=== PATIENT | male | born 1945 | race African-American/Black ===

== ENCOUNTER 2025-08-15 13:06 | Inpatient (IN) | payer MEDICARE, OTHER ==
[2025-08-15] VITALS (8 sets, daily range): BP systolic 142–151; BP diastolic 80–88; PULSE 79–97; RESP 18–22; TEMP 36.8–36.974; O2SAT 92–98
[~2025-08-15] VITALS: Ht 177.8 cm; Wt 65.3 kg
[2025-08-15] MEDS: METHYLPREDNISOLONE SOD SUCC 125MG/2ML (ACT-O-VIAL) IV ONE (13:53)
[2025-08-15] MEDS: AZITHROMYCIN 500MG/250ML 250 ML IV ONE (13:54)
[2025-08-15 13:58] LABS: HEMATOCRIT. 32.4 % (42.0-52.0); HEMOGLOBIN. 10.8 g/dL (14.0-18.0); MEAN PLATELET VOLUME 9.5 fl (7.4-10.4); PLATELET 353 x1000/uL (130-400); RED BLOOD CELL COUNT 3.31 mill/uL (4.7-6.1); RED CELL DISTRIBUTION WIDTH 16.5 % (11.6-14.6)
[2025-08-15] MEDS: ALBUTEROL (0.083%) 2.5MG/3ML NEB HHN SCH (14:00)
[2025-08-15 14:18] LABS: CREATININE 1.0 mg/dL (0.6-1.3)
[2025-08-15 14:19] LABS: PROTEIN TOTAL 7.1 g/dL (6.0-8.3); UREA NITROGEN BLOOD 14 mg/dL (9-23)
[2025-08-15 14:20] LABS: ASPARTATE AMINOTRANSFERASE 43 IU/L (<34); BILIRUBIN DIRECT 0.3 mg/dL (<=3.0)
[2025-08-15 14:21] LABS: BILIRUBIN TOTAL 0.8 mg/dL (0.1-1.0)
[2025-08-15 14:21] LABS: BG BASE EXCESS -0.1 mmol/L (-2.0-3.0); BG CARBOXYHEMOGLOBIN 1.2 % (0.5-1.5); BG DEOXYHEMOGLOBIN 7.8 % (0.0-5.0); BG FLOW(L/min) 8.00 L/min; BG FRACTION INSPIRED OXYGEN 60; BG HCO3 ACT 22.8 mmol/L (21.0-28.0); BG METHEMOGLOBIN 0.3 % (0.5-1.5); BG OXYGEN SATURATION 92.1 % (94.0-98.0); BG OXYHEMOGLOBIN 90.7 % (94.0-98.0); BG PCO2 31.4 mmHg (35.0-48.0); BG PH 7.478 (7.350-7.450); BG PO2 62.6 mmHg (83.0-108.0); BG SAMPLE SITE RIGHT RADIAL; BG TOTAL HEMOGLOBIN 12.2 g/dL (13.5-17.5); BG VENT MODE MASK - HHN
[2025-08-15 14:25] LABS: TROPONIN I HIGH SENSITIVITY 123 ng/L (3.0-53)
[2025-08-15 14:31] LABS: BAND% 9.0 % (1.0-6.0); LYMPHOCYTES % MANUAL 8.0 % (20.0-50.0); MONOCYTES % MANUAL 4.0 % (2.0-8.0); NEUTROPHILS % MANUAL 79.0 % (45.0-75.0); PLATELET ESTIMATE NORMAL
[2025-08-15] MEDS ORDERED: CEFTRIAXONE 2,000 MG in DEXT 5% WATER 100 ML IV SCH (15:00)
[2025-08-15] MEDS: FUROSEMIDE 40MG/4ML VIAL IVP ONE (15:05)
[2025-08-15] MEDS ORDERED: CLONIDINE 0.1MG TABLET PO PRN (15:15)
[2025-08-15] MEDS ORDERED: ONDANSETRON HCL 4MG/2ML INJ IV PRN (15:15)
[2025-08-15] MEDS ORDERED: ACETAMINOPHEN 325MG TABLET PO PRN ×2 (15:15)
[2025-08-15] MEDS ORDERED: IPRATROPIUM/ALBUTEROL 0.5-3(2.5)MG/3ML NEB HHN PRN (15:15)
[2025-08-15] MEDS ORDERED: DOCUSATE SODIUM 100MG CAPSULE PO PRN (15:15)
[2025-08-15] MEDS: CEFTRIAXONE 2GM/50ML 50ML IV SCH (15:23)
[2025-08-15] MEDS: BUDESONIDE 0.5MG/2ML NEB HHN SCH (16:38)
[2025-08-15] MEDS: IPRATROPIUM/ALBUTEROL 0.5-3(2.5)MG/3ML NEB HHN SCH (16:39)
[2025-08-15 17:26] LABS: TROPONIN I HIGH SENSITIVITY 260 ng/L (3.0-53)
[2025-08-15] MEDS: FUROSEMIDE 40MG/4ML VIAL IVP SCH (22:13)
[2025-08-15] MEDS: ATORVASTATIN CALCIUM 40MG TABLET PO SCH (22:14)
[2025-08-15] MEDS: CARVEDILOL 3.125 MG TABLET PO SCH (22:15)
[2025-08-16] VITALS (15 sets, daily range): BP systolic 118–135; BP diastolic 65–79; PULSE 62–85; RESP 16–21; TEMP 36.5–36.9; O2SAT 92–98
[2025-08-16 06:20] LABS: HEMATOCRIT. 31.5 % (42.0-52.0); HEMOGLOBIN. 10.7 g/dL (14.0-18.0); MEAN PLATELET VOLUME 9.4 fl (7.4-10.4); PLATELET 302 x1000/uL (130-400); RED BLOOD CELL COUNT 3.23 mill/uL (4.7-6.1); RED CELL DISTRIBUTION WIDTH 16.2 % (11.6-14.6)
[2025-08-16 06:35] LABS: CREATININE 1.0 mg/dL (0.6-1.3); TRIGLYCERIDE 81 mg/dL (0-150); UREA NITROGEN BLOOD 13 mg/dL (9-23)
[2025-08-16 06:36] LABS: LDL CHOLESTEROL 52 mg/dL (5-100)
[2025-08-16 06:53] LABS: TROPONIN I HIGH SENSITIVITY 1303 ng/L (3.0-53)
[2025-08-16] MEDS: LOSARTAN 25 MG TABLET PO SCH (08:09)
[2025-08-16] MEDS: ASPIRIN 81MG EC TABLET PO SCH (08:10)
[2025-08-16] MEDS: SPIRONOLACTONE 25MG TABLET PO SCH (08:10)
[2025-08-16] MEDS: POTASSIUM CHLORIDE 20MEQ TABLET SR PO NR (10:10)
[2025-08-16] MEDS: ENOXAPARIN 40MG/0.4ML SYR SUBCUT SCH (10:10)
[2025-08-16 22:03] LABS: HEMATOCRIT. 32.4 % (42.0-52.0); HEMOGLOBIN. 10.6 g/dL (14.0-18.0); MEAN PLATELET VOLUME 9.7 fl (7.4-10.4); PLATELET 307 x1000/uL (130-400); RED BLOOD CELL COUNT 3.26 mill/uL (4.7-6.1); RED CELL DISTRIBUTION WIDTH 16.4 % (11.6-14.6)
[2025-08-16 22:22] LABS: CREATININE 1.0 mg/dL (0.6-1.3); UREA NITROGEN BLOOD 17 mg/dL (9-23)
[2025-08-17] VITALS (10 sets, daily range): BP systolic 117–132; BP diastolic 62–70; PULSE 70–85; RESP 15–20; TEMP 36.4–36.7; O2SAT 94–98
[2025-08-17 06:49] LABS: CREATININE 0.9 mg/dL (0.6-1.3); UREA NITROGEN BLOOD 15 mg/dL (9-23)
[2025-08-17 06:55] LABS: TROPONIN I HIGH SENSITIVITY 717 ng/L (3.0-53)
[2025-08-17 07:29] LABS: HEMATOCRIT. 31.9 % (42.0-52.0); HEMOGLOBIN. 11.1 g/dL (14.0-18.0); MEAN PLATELET VOLUME 9.5 fl (7.4-10.4); PLATELET 241 x1000/uL (130-400); RED BLOOD CELL COUNT 3.25 mill/uL (4.7-6.1); RED CELL DISTRIBUTION WIDTH 16.2 % (11.6-14.6)
[2025-08-17] MEDS: POTASSIUM CHLORIDE 20MEQ TABLET SR PO NR (13:43)
[2025-08-17 15:24] LABS: LYMPHOCYTES % MANUAL 6.0 % (20.0-50.0); MONOCYTES % MANUAL 7.0 % (2.0-8.0); NEUTROPHILS % MANUAL 87.0 % (45.0-75.0); NUCLEATED RED BLOOD CELLS 6 /100 WBC; PLATELET ESTIMATE NORMAL
[2025-08-17 15:58] LABS: LYMPHOCYTES % MANUAL 3.0 % (20.0-50.0); MONOCYTES % MANUAL 11.0 % (2.0-8.0); NEUTROPHILS % MANUAL 86.0 % (45.0-75.0)
[2025-08-17 15:59] LABS: PLATELET ESTIMATE NORMAL
[2025-08-17 17:28] LABS: LYMPHOCYTES % MANUAL 10.0 % (20.0-50.0); MONOCYTES % MANUAL 10.0 % (2.0-8.0); NEUTROPHILS % MANUAL 80.0 % (45.0-75.0); PLATELET ESTIMATE NORMAL
== END 2025-08-17 19:45 | disposition short-term general hospital (02) | DRG 291 ==
LOC: ER 13:06 → EDBEDREQTM 14:59 → EDBEDREQ 14:59 → 8WST 17:06
PROVIDERS: ADMIT Family Medicine Adult Medicine; ATTEND Family Medicine Adult Medicine
DX: I11.0 Hypertensive heart disease with heart failure (principal); I50.23 Acute on chronic systolic (congestive) heart failure; J96.01 Acute respiratory failure with hypoxia; J44.1 Chronic obstructive pulmonary disease with (acute) exacerbation; E87.6 Hypokalemia; I42.9 Cardiomyopathy, unspecified; F12.90 Cannabis use, unspecified, uncomplicated; I25.2 Old myocardial infarction; Z87.891 Personal history of nicotine dependence; Z95.810 Presence of automatic (implantable) cardiac defibrillator
CPT/HCPCS: 36415; 36600; 71045; 72131; 72192; 73700; 80048; 80061; 80076; 82375; 82805; 83735; 83880; 84443; 84484; 85025; 93005; 93306; 93970; 94070; 94640; 94664; 99285; A4606; J0456; J0696; J1650; J1938; J2919; J7626